=== PATIENT | male | born 1980 | race Caucasian/White ===

== ENCOUNTER → 2016-11-01 | Outpatient (CLI) | payer BC ==
--- NOTE | 2016-11-05 01:08 | XR ---
EXAMINATION TYPE: XR chest 2V DATE OF EXAM: 11/01/2016 8:52 AM COMPARISON: 05/11/2014 HISTORY: 36-year-old male with cough TECHNIQUE: Frontal and lateral views FINDINGS: The cardiomediastinal silhouette, aorta, and pulmonary vasculature are within normal limits. There is very mild peribronchial cuffing noted. Otherwise, lungs and pleural spaces are clear. IMPRESSION: Very mild peribronchial cuffing could reflect bronchitis or chronic asthma. Otherwise, no acute proce ss.
== END | disposition home or self-care (01) ==
LOC: RADXRYALE 08:35
PROVIDERS: ATTEND Internal Medicine
DX: R05 Cough (principal)
CPT/HCPCS: 71020

== ENCOUNTER → 2016-11-06 | Outpatient (CLI) | payer BC ==
--- NOTE | 2016-11-07 16:53 | XR ---
EXAMINATION TYPE: Left rib series DATE OF EXAM: 11/06/2016 9:56 AM COMPARISON: Chest 11/01/2016 HISTORY: 36-year-old male left rib injury, mid anterior left rib pain after fall a few days ago. FINDINGS: No displaced left rib fracture. No pneumothorax or pleural effusion. IMPRESSION: No displaced left rib fracture.
== END | disposition home or self-care (01) ==
LOC: RADXRYALE 09:10
PROVIDERS: ATTEND Internal Medicine
DX: S03.41XA Sprain of jaw, right side, initial encounter (principal)

== ENCOUNTER → 2017-10-29 | Outpatient (CLI) | payer BC ==
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
== END | disposition home or self-care (01) ==
LOC: RADXRYALE 11:42
PROVIDERS: ATTEND Internal Medicine
DX: R07.81 Pleurodynia (principal)

== ENCOUNTER → 2018-08-04 | Outpatient (CLI) | payer BC ==
--- NOTE | 2018-08-04 14:07 | XR ---
EXAMINATION TYPE: XR chest 2V DATE OF EXAM: 08/04/2018 COMPARISON: 10/29/2017 HISTORY: 37-year-old male with cough TECHNIQUE: Frontal and lateral views FINDINGS: The cardiomediastinal silhouette, aorta, and pulmonary vasculature are within normal limits. Lungs an d pleural spaces are clear. IMPRESSION: No acute cardiopulmonary process.
== END ==
LOC: RADXRYALE 13:44
PROVIDERS: ATTEND Internal Medicine
DX: R05 Cough (principal)
CPT/HCPCS: 71046

== ENCOUNTER → 2019-12-23 | Outpatient (CLI) | payer BC ==
--- NOTE | 2019-12-23 08:24 | XR ---
EXAMINATION TYPE: XR chest 2V DATE OF EXAM: 12/23/2019 COMPARISON: 08/04/2018 HISTORY: 39-year-old male R05, cough TECHNIQUE: PA and lateral views FINDINGS: The cardiomediastinal silhouette, aorta, and pulmonary vasculature are within normal limits. Lungs an d pleural spaces are clear. IMPRESSION: No acute cardiopulmonary process.
== END | disposition home or self-care (01) ==
LOC: RADXRYALE 08:10
PROVIDERS: ATTEND Internal Medicine
DX: R05 Cough (principal)
CPT/HCPCS: 71046

== ENCOUNTER → 2020-04-11 | Outpatient (CLI) | payer BC ==
--- NOTE | 2020-04-11 10:45 | XR ---
EXAMINATION TYPE: XR chest 2V DATE OF EXAM: 04/11/2020 COMPARISON: 12/23/2019 HISTORY: 39-year-old male R05, cough TECHNIQUE: Frontal and lateral views FINDINGS: The cardiomediastinal silhouette, aorta, and pulmonary vasculature are within normal limits. Lungs an d pleural spaces are clear. IMPRESSION: No acute cardiopulmonary process.
== END | disposition home or self-care (01) ==
LOC: RADXRYALE 10:27
PROVIDERS: ATTEND Internal Medicine
DX: R05 Cough (principal)
CPT/HCPCS: 71046

== ENCOUNTER → 2020-09-13 | Outpatient (CLI) | payer BC ==
--- NOTE | 2020-09-13 09:09 | MR ---
MR brain without contrast HISTORY: Migraine with aura Multiplanar multisequence imaging through the brain No comparisons There is no restricted diffusion. There is no hemorrhage or hydrocephalus. Brain signal remarkable fo r focus of hyperintensity in the right frontal lobe, axial image #22 measuring 8.1 x 4.6 x 8.4 mm cep halad to caudal dimension on T1 and T2-weighted sequences. Additional hyperintensities are present in the right frontal lobe towards the convexity which are small in size, axial image #26 in the subcort ical white matter as well as a periventricular focus, axial image #21, approximately 5-7 lesions are present in total. There are normal vascular flow voids present. Right vertebral artery is dominant. I nflammatory change present in the sphenoid sinus, ethmoid air cells, the maxillary sinuses with possi ble small polyps. Orbits show symmetric appearance. Corpus callosum, pituitary, cervical medullary ju nction, cerebellopontine angles are within normal limits. IMPRESSION: Nonspecific white matter demyelination could be related to migraine headaches, hypertensi on, Lyme disease, vasculitis, multiple sclerosis in the appropriate clinical setting. Sinus disease.
== END | disposition home or self-care (01) ==
LOC: RADMRIMAIN 07:56
PROVIDERS: ATTEND Family Medicine
DX: G37.9 Demyelinating disease of central nervous system, unspecified (principal)
CPT/HCPCS: 70551

== ENCOUNTER 2022-05-08 09:57 | Day surgery (SDC) | payer BC ==
[2022-05-06 13:48] VITALS: BMI 29.0
[~2022-05-08 09:57] MED LIST: LACTATED RINGERS 1,000 ML IV SCH; LIDOCAINE 1% (10MG/ML) FOR IV START INTRADERMA PRN
[2022-05-08 10:30] VITALS: TEMP 97
[2022-05-08] MEDS ORDERED: PROPOFOL 10 MG/ML 20 ML VIAL IV ONE (10:50)
--- NOTE | 2022-05-08 11:06 | P.PCN ---
Date of Procedure: 05/08/22 Procedure(s) Performed: BRIEF HISTORY: Patient is a 41-year-old pleasant male scheduled for an elective colonoscopy as a part of evaluation of chronic diarrhea for the last several years duration. PROCEDURE PERFORMED: Colonoscopy with random biopsy PREOPERATIVE DIAGNOSIS: Chronic diarrhea. IV sedation per Anesthesia. PROCEDURE: After informed consent was obtained, the patient, was brought into the endoscopy unit. IV sedation was administered by Anesthesia under continuous monitoring. Digital rectal examination was normal. Initially the Olympus CF-160 flexible video colonoscope was then inserted in the rectum, gradually advanced into the cecum without any difficulty. Careful examination was performed as the scope was gradually being withdrawn. Ileocecal valve and the appendiceal orifice were visualized and appeared normal. Prep was excellent. Mucosa of the cecum, had a 3-4 mm sessile polyp that was removed by cold biopsy. Rest of the ascending colon, transverse colon, descending colon, sigmoid colon, and rectum appeared normal. biopsies were done from the ascending colon and descending colon to rule out microscopic/collagenous colitis. Retroflexion was performed in the rectum and no lesions were seen. The patient tolerated the procedure well. IMPRESSION: 3-4 mm sessile cecal polyp status post cold biopsy Rest of the colon appeared normal . RECOMMENDATIONS: Findings of this examination were discussed with the patient as well as his family. He was advised to follow with the biopsy results. He will continue with dicyclomine 10 mg 3 times daily as needed. Recommend repeat colonoscopy in 5 years
[2022-05-08 11:09] VITALS: RESP 16
[2022-05-08 11:29] VITALS: BP 125/85; PULSE 77
== END 2022-05-08 16:14 ==
LOC: ORWHC2ENDO 09:57
PROVIDERS: ATTEND Internal Medicine Gastroenterology
DX: D12.0 Benign neoplasm of cecum (principal); K52.9 Noninfective gastroenteritis and colitis, unspecified; I10 Essential (primary) hypertension; E78.5 Hyperlipidemia, unspecified; G43.909 Migraine, unspecified, not intractable, without status migrainosus; Z79.899 Other long term (current) drug therapy; Z87.891 Personal history of nicotine dependence; Z88.0 Allergy status to penicillin
CPT/HCPCS: 88305; 45380; J2704